=== PATIENT | male | born 1990 | race Caucasian/White ===

== ENCOUNTER 2016-05-31 08:12 | Emergency (ER) | payer OTHER ==
[~2016-05-31] VITALS: Ht 165.1 cm; Wt 68.2 kg
[~2016-05-31 08:12] MED LIST: BENTYL10 MG PO; CIPRO500 MG PO; DOXYCYCLINE HY100 M1; FLAGYL500 MG PO; FLEXERIL5 MG PO; HYDROCODON-ACE1 EAC7 PO; LOMOTIL TABLET1 EACH PO; MOTRIN800 MG PO; NOHOMEMEDS; PERCOCET 5/31 TABLET PO; PREDNISONE10 MG; TETRACYCLINE H250 MG PO; TORADOL10 MG PO; TYLENOL REGULA325 MG PO; ULTRAM50 MG PO; VICODIN,LORT1 TABLET PO; ZITHROMAX Z-PA250 MG PO; ZOFRAN ODT4 MG PO; ZOFRAN4 MG PO
[2016-05-31] MEDS ORDERED: METHADONE10 MG PO (08:56)
[2016-05-31] MEDS ORDERED: CITRATE OF MAG296 ML PO (10:04)
[2016-05-31] MEDS ORDERED: ADULT SUPPOSIT1 EACH PR (10:04)
[2016-05-31] MEDS ORDERED: MIRALAX255 GM PO (10:04)
[2016-05-31 10:36] VITALS: BP 120/76
== END 2016-05-31 10:37 | disposition home or self-care (01) ==
LOC: EME 08:12
DX: K59.00 Constipation, unspecified (principal); Z79.891 Long term (current) use of opiate analgesic
CPT/HCPCS: 74000; 99281; 99283

== ENCOUNTER 2016-06-17 07:57 | Emergency (ER) | payer OTHER ==
[~2016-06-17] VITALS: Ht 165.1 cm; Wt 68.9 kg
[~2016-06-17 07:57] MED LIST changes: +ADULT SUPPOSIT1 EACH PR; +CITRATE OF MAG296 ML PO; +METHADONE10 MG PO; +MIRALAX255 GM PO
[2016-06-17] MEDS ORDERED: VIBRAMYCIN100 MG PO (09:05)
[2016-06-17 09:10] VITALS: BP 122/72
== END 2016-06-17 09:11 | disposition home or self-care (01) ==
LOC: EME 07:57
DX: S71.151A Open bite, right thigh, initial encounter (principal); S70.11XA Contusion of right thigh, initial encounter; W54.0XXA Bitten by dog, initial encounter; Z79.891 Long term (current) use of opiate analgesic; F17.200 Nicotine dependence, unspecified, uncomplicated
CPT/HCPCS: 73552; 99281; 99284

== ENCOUNTER 2016-09-22 15:15 | Emergency (ER) | payer OTHER ==
[~2016-09-22] VITALS: Ht 167.6 cm; Wt 67.8 kg
[~2016-09-22 15:15] MED LIST changes: +VIBRAMYCIN100 MG PO
[2016-09-22 15:17] VITALS: BP 151/98
[2016-09-22] MEDS ORDERED: FLEXERIL5 MG PO (16:40)
== END 2016-09-22 17:26 | disposition home or self-care (01) ==
LOC: EME 15:15
DX: S16.1XXA Strain of muscle, fascia and tendon at neck level, initial encounter (principal); S39.012A Strain of muscle, fascia and tendon of lower back, initial encounter; V49.40XA Driver injured in collision with unspecified motor vehicles in traffic accident, initial encounter; Z72.0 Tobacco use
CPT/HCPCS: 72040; 72100; 99281; 99283

== ENCOUNTER 2017-05-22 07:03 | Emergency (ER) | payer OTHER ==
[~2017-05-22] VITALS: Ht 165.1 cm; Wt 72.3 kg
[2017-05-22] MEDS ORDERED: ZANTAC150 MG PO (08:28)
[2017-05-22] MEDS ORDERED: ATARAX,VISTARIL25 MG PO (08:28)
[2017-05-22] MEDS ORDERED: ZYRTEC10 M2 PO (08:28)
[2017-05-22 08:45] VITALS: BP 142/70
== END 2017-05-22 08:45 | disposition home or self-care (01) ==
LOC: EME 07:03
DX: L25.9 Unspecified contact dermatitis, unspecified cause (principal); Z77.011 Contact with and (suspected) exposure to lead; Z72.0 Tobacco use; Z88.0 Allergy status to penicillin
CPT/HCPCS: 99281; 99283